=== PATIENT | female | born 1980 | race African-American/Black ===

== ENCOUNTER 2024-12-05 10:36 | Outpatient (CLI) | payer BC | END 2024-12-05 10:37 | disposition home or self-care (01) | LOC: CSHMAMMO 10:36 | PROVIDERS: ATTEND Obstetrics & Gynecology | DX: Z12.31 Encounter for screening mammogram for malignant neoplasm of breast (principal); Z98.82 Breast implant status | CPT/HCPCS: 77063; 77067 ==